=== PATIENT | female | born 1985 | race Caucasian/White ===

== ENCOUNTER 2016-05-26 09:25 | Emergency (ER) | payer BC, OTHER ==
[2016-05-26 09:29] VITALS: BP 120/65; PULSE 114; TEMP 99.9; BMI 30.1
[2016-05-26] MEDS ORDERED: IBUPROFEN 600 MG TABLET (FP) PO ONE (09:55)
[2016-05-26] MEDS ORDERED: IBUPROFEN 400 MG TABLET (FP) PO ONE (09:57)
--- NOTE | 2016-05-26 10:59 | PDOC ---
[id number] 4d CHILLS, STREP THROAT Time Seen by Provider: 05/26/16 09:48 History Source: Patient Exam Limitations: No Limitations - History of Present Illness Initial Comments: 05/26/16 11:53 31 yr female with c/o sore throat chills, fever since last night 05/26/16 12:35 Past History - Past Medical History Allergies/Adverse Reactions: Allergies Allergy/AdvReac Type Severity Reaction Status Date / Time No Known Allergies Allergy Verified 05/26/16 09:29 Home Medications: Ambulatory Orders Penicillin V Potassium [Pen Vee K -] 500 mg PO BID #21 tablet 05/26/16 Anemia: No - Surgical History Abdominal Surgery: No - Reproductive History (#): 2 Para: 1 - Psycho/Social/Smoking Cessation Hx Anxiety: No Suicidal Ideation: No Smoking Status: No Smoking History: Never smoked Number of Cigarettes Smoked Daily: 0 Information on smoking cessation initiated: No Hx Alcohol Use: No Drug/Substance Use Hx: No Substance Use Type: None Review of Systems - Review of Systems Able to Perform ROS?: Yes Is the patient limited Frisian proficient: No Constitutional: Yes: Symptoms Reported HEENTM: Yes: Symptoms Reported *Physical Exam - Vital Signs Last Vital Signs Temp Pulse Resp BP Pulse Ox 99.9 F H 114 H 18 120/65 99 05/26/16 09:27 05/26/16 09:27 05/26/16 09:27 05/26/16 09:27 05/26/16 09:27 - Physical Exam General Appearance: Yes: Nourished HEENT: positive: EOMI, BISMARK, Pharynx Normal, Pharyngeal Erythema, Tonsillar Erythema Neck: positive: Supple, Lymphadenopathy (L) Respiratory/Chest: positive: Lungs Clear, Normal Breath Sounds Cardiovascular: positive: Regular Rhythm, Regular Rate Gastrointestinal/Abdominal: positive: Normal Bowel Sounds, Soft Musculoskeletal: positive: Normal Inspection Extremity: positive: Normal Capillary Refill, Normal Inspection, Normal Range of Motion Integumentary: positive: Normal Color, Dry, Warm Neurologic: positive: Fully Oriented, Alert, Normal Mood/Affect, Normal Response , Motor Strength 5/5 ED Treatment Course - ADDITIONAL ORDERS Additional order review: 05/26/16 09:30 Group A Strep Rapid Antigen - Final Throat - Medications Given in the ED: ED Medications Discontinued Medications Generic Name Dose Route Start Last Admin Trade Name Freq PRN Reason Stop Dose Admin Ibuprofen 800 mg 05/26/16 09:55 05/26/16 09:59 Motrin - PO 05/26/16 09:56 800 mg ONCE ONE Administration Medical Decision Making - Medical Decision Making 05/26/16 12:36 cc: sore throat fever, chills no urinary complaints no abd pain *DC/Admit/Observation/Transfer Diagnosis at time of Disposition: Strep pharyngitis - Discharge Dispostion Disposition: HOME Condition at time of disposition: Good - Prescriptions Prescriptions: Penicillin V Potassium [Pen Vee K -] 500 mg PO BID #21 tablet - Referrals Referrals: Fredy Mittal [Primary Care Provider] - - Patient Instructions Additional Instructions: gargle with warm salt water 4-5 times a day take the prescribed Penicillin as directed fro 10 days finish all the medication take motrin 600-800mg every 6hrs for fever or pain soft foods throw out toothbrush at end of treatment no sharing utensils, drinks as strep is spread through close contacts return if any worsening symptoms
== END 2016-05-26 11:03 | disposition home or self-care (01) ==
LOC: JERFT 09:25
DX: J02.0 Streptococcal pharyngitis (principal); B95.0 Streptococcus, group A, as the cause of diseases classified elsewhere
CPT/HCPCS: 87070; 87430; 99281-25